=== PATIENT | male | born 1985 | race Caucasian/White ===

== ENCOUNTER → 2016-11-10 | Emergency (ER) | payer OTHER ==
[~2016-11-10] VITALS: Ht 180.3 cm; Wt 99.8 kg
[~2016-11-10] MED LIST: CEPH-264 PO; DEXAMETHASONE 4 MG TABLET PO ONE
--- NOTE | 2016-11-10 13:46 | PHYS DOC ---
Adult General Chief Complaint Chief Complaint: INSECT BITE HPI HPI Patient is a 31-year-old male presenting to the emergency department for evaluation of left mid humerus arm pain in the setting of an insect bite 8 days ago. He was mowing the lawn and felt a sharp pinprick to his left arm and it became quite swollen with hives around it and took Benadryl and he got better. At her over the week however today he noticed that his arm was red and hard and painful. He denies any systemic symptoms of fevers chills nausea vomiting shortness of breath or swelling or other areas of skin changes. He says that his tetanus is up-to-date. Review of Systems Review of Systems Constitutional: Denies fever or chills [] Integument: + rash, skin lesions [] Physical Exam Physical Exam Constitutional: Well developed, well nourished, no acute distress, non-toxic appearance. [] Skin: Left inner arm with approximate 5 x 5 cm area of hardness erythema and warmth. No retained stinger palpated or visualized on exam. There is no area of induration or drainage. EKG EKG [] Radiology/Procedures Radiology/Procedures [] Course & Med Decision Making Course & Med Decision Making Patient with secondary cellulitis likely from the insect bite. He has some histamine reaction as well to them so we'll give him a dose of Decadron here and tell him to continue warm compresses and Benadryl. Given there is likely secondary cellulitis will be started on Keflex as well and I told him to watch out for an abscess and explained to him and told to come back if there is any signs or symptoms of an abscess as he would require incision and drainage. Patient aware and agreeable with plan for discharge and verbalized understanding of the above instructions. Dragon Disclaimer Dragon Disclaimer This chart was dictated in whole or in part using Voice Recognition software in a busy, high-work load, and often noisy Emergency Department environment. It may contain unintended and wholly unrecognized errors or omissions. Departure Departure: Impression: Primary Impression: Cellulitis Additional Impression: Insect bite Disposition: HOME, SELF-CARE Condition: GOOD Patient Instructions: Cellulitis Additional Instructions: TAKE 25-50MG OF BENADRYL EVERY 6 HOURS AND YOU CAN TAKE IBUPROFEN FOR PAIN. HAVE THIS WOUND RECHECKED IN 2-3 DAYS AND COME BACK TO THE ED SOONER WITH WORSENING REDNESS, PAIN, FEVERS, OR OTHER GENERAL CONCERNS. THANK YOU! Scripts Cephalexin (KEFLEX) 500 Mg Capsule 1 CAP PO TID, #21 CAP Prov: SIVA LUCIA DO 11/10/16 Problem Qualifiers Primary Impression: Cellulitis Site of cellulitis: extremity Site of cellulitis of extremity: upper extremity Laterality: left Qualified Codes: L03.114 - Cellulitis of left upper limb SIVA LUCIA DO Nov 10, 2016 13:46
[2016-11-10 13:50] VITALS: BP 124/75
== END ==
LOC: ER 13:25
DX: L03.114 Cellulitis of left upper limb (principal); S40.862A Insect bite (nonvenomous) of left upper arm, initial encounter; W57.XXXA Bitten or stung by nonvenomous insect and other nonvenomous arthropods, initial encounter; Y93.89 Activity, other specified; Y99.8 Other external cause status; Y92.89 Other specified places as the place of occurrence of the external cause
CPT/HCPCS: 99283; J8540; 99282